=== PATIENT | female | born 1960 | race Caucasian/White ===

== ENCOUNTER 2019-07-11 11:28 | Day surgery (SDC) | payer OTHER ==
[~2019-07-11] VITALS: Ht 154.9 cm; Wt 63.0 kg
[2019-07-11] MEDS ORDERED: LIDOCAINE 2% 100 MG/5 ML UJET TP ONE (12:16)
[2019-07-11] MEDS ORDERED: fentaNYL 0.05 MG/ML VIAL ONE (12:16)
[2019-07-11] MEDS ORDERED: fentaNYL 0.05 MG/ML VIAL IVP ONE (12:30)
== END 2019-07-11 13:40 | disposition home or self-care (01) ==
LOC: MDS 11:28 → MMU 11:32 → MDS 13:40
PROVIDERS: ATTEND Internal Medicine Gastroenterology
DX: Z12.11 Encounter for screening for malignant neoplasm of colon (principal); D12.4 Benign neoplasm of descending colon; K57.30 Diverticulosis of large intestine without perforation or abscess without bleeding; Z98.82 Breast implant status; Z98.890 Other specified postprocedural states; Z91.040 Latex allergy status
CPT/HCPCS: 45385; J3010